=== PATIENT | female | born 1970 | race African-American/Black ===

== ENCOUNTER 2020-01-18 15:28 | Outpatient (CLI) | payer BC, SELFPAY ==
--- NOTE | ~2020-01-18 | MM_ITS ---
EXAMINATION: MM screening michael BI w mag HISTORY: Screening mammogram TECHNIQUE: Craniocaudal and mediolateral oblique 3-D tomosynthesis images were obtained and synthetic 2-D images were generated. CAD analysis was submitted and interpreted. COMPARISON: Comparison to multiple prior studies sequentially, with oldest reviewed study dated 01/2024. BREAST PARENCHYMAL COMPOSITION: There are scattered areas of fibroglandular density. FINDINGS: There is no evidence of suspicious mass, calcification, or architectural distortion to sugg est malignancy in either breast. There has been no suspicious interval change. IMPRESSION: 1. No mammographic evidence of malignancy. 2. Recommend routine screening mammography in one year. BI-RADS Category 1: Negative Reviewed, dictated and finalized at location A.
== END 2020-01-18 15:29 | disposition home or self-care (01) ==
LOC: ANHIMG 15:35
PROVIDERS: PCP Internal Medicine; Visit Provider Obstetrics & Gynecology
DX: Z12.31 Encounter for screening mammogram for malignant neoplasm of breast (principal)
CPT/HCPCS: 77063; 77067

== ENCOUNTER → 2020-05-24 09:35 | Outpatient (CLI) | payer BC, SELFPAY ==
--- NOTE | ~2020-05-24 | XR_ITS ---
EXAMINATION: XR chest 2V DATE: 05/24/2020 10:14 INDICATION: Encounter for screening for respiratory tuberculosis TECHNIQUE: PA and lateral views of the chest are obtained. COMPARISON: 05/01/2015 FINDINGS: The lungs are free of acute opacities. There is no pleural effusion or pneumothorax. The ca rdiomediastinal silhouette is normal. There is mild thoracic spondylosis. IMPRESSION: 1. No acute cardiopulmonary abnormality. Reviewed, dictated and finalized at location A. ER OPERATOR
== END ==
PROVIDERS: PCP Internal Medicine; Visit Provider Physician Assistant
DX: Z11.1 Encounter for screening for respiratory tuberculosis (principal)
CPT/HCPCS: 71046

== ENCOUNTER 2020-12-14 08:05 | Outpatient (CLI) | payer BC, SELFPAY ==
--- NOTE | ~2020-12-14 | CT_ITS ---
EXAMINATION: CT abdomen pelvis wo/w con DATE: 12/14/2020 08:32 INDICATION: Right flank pain TECHNIQUE: Computed tomography (CT) of the abdomen and pelvis was performed without intravenous contr ast. CT of the abdomen and pelvis was then performed with a total of 100 mL Omnipaque 350 intravenous contrast. The dose-length product (DLP) was 2325.40 mGy-cm. Automated exposure control and iterative reconstruction technique were employed. COMPARISON: None FINDINGS: The lung bases are clear. The heart size is normal. The liver, spleen, pancreas, gallbladde r, and adrenal glands are normal. The kidneys are unremarkable. No stones are identified in the kidne ys, ureters, or bladder. There is no hydronephrosis or hydroureter. No pathologically enlarged abdomi nal or pelvic lymph nodes are identified. There is no free intraperitoneal gas or evidence of bowel o bstruction. There is marked enlargement of the uterus by fibroids. There are three large fibroids whi ch measure 8.2 cm, 8 cm, and 5.8 cm. Smaller fibroids are also noted. There is mild lumbar spondylosi s. IMPRESSION: 1. No CT correlate for the patient's symptoms. 2. Enlarged fibroid uterus. Reviewed, dictated and finalized at location A.
== END 2020-12-14 08:06 | disposition home or self-care (01) ==
LOC: ANHIMG 08:09
PROVIDERS: PCP Internal Medicine; Visit Provider Internal Medicine
DX: R10.9 Unspecified abdominal pain (principal); D25.9 Leiomyoma of uterus, unspecified
CPT/HCPCS: 74178; Q9967

== ENCOUNTER 2021-01-03 08:23 | Outpatient (CLI) | payer BC, SELFPAY ==
--- NOTE | ~2021-01-03 | NM_ITS ---
EXAMINATION: NM stress w perf spect multi DATE: 01/03/2021 11:01 INDICATION: Chest pain TECHNIQUE: Rest images were obtained following intravenous administration of 10.2 mCi Tc99m tetrofosm in (Myoview). The patient performed an exercise activity. At peak exercise, 32.3 mCi Tc99m tetrofosmi n (Myoview) was administered intravenously, and stress images were obtained. Data was reconstructed i nto short axis and horizontal and vertical long axis SPECT images. Gated SPECT images were also obtai tomy. COMPARISON: None. FINDINGS: Small region of mild decreased activity at the mid anterior wall on the poststress images which appea rs to result from some breast attenuation artifact on the rotating source images. There is otherwise normal left ventricular perfusion without definite evidence of reversible or fixed perfusion abnormal ity to suggest ischemia or infarction. There is normal left ventricular chamber size, wall motion an d ejection fraction. Left ventricular ejection fraction measures >70%. IMPRESSION: Small region of likely breast attenuation artifact at the midanterior segment. Otherwise normal myoca rdial perfusion at rest and during stress. 2. Left ventricular ejection fraction measuring >70%. Reviewed, dictated and finalized at location A. IMPRESSION: Small region of likely breast attenuation artifact at the midanterior segment. Otherwise normal myocardial perfusion at rest and during stress. 2. Left ventricular ejection fraction measuring >70%.
--- NOTE | 2021-01-03 08:53 | EST_ITS ---
Patient Info Name: Nicole Dent Age: 50 years : 1970 Gender: Female Ht: 70 in Wt: 275 lbs BSA: 2.54 m2 Exam Date: 01/03/2021 9:33 AM Exam Location: [facility] [place] Patient Status: Outpatient Admit Date: 01/03/2021 Staff Ordering Physician: Jhon Mckeon DO Attending Provider: Jhon Mckeon DO Exercise Technologist: Berhane Sanchez RDCS, RT Exercise Physician: Abraham Hernandez DO Exam Type: CA stress test treadmill w NM Study Info A nuclear stress test was performed. Summary 1. 1. Negative Kervin exercise stress test for ischemic ST changes by ECG criteria. 2. 2. Reduced functional capacity, achieving 6 METs of workload. 3. 3. Baseline hypertension. 4. 4. Appropriate HR response to exercise. 5. 5. Appropriate HR recovery at 1 minute post exercise. 6. 6. Nuclear scan to follow and will be reported separately. Please correlate with it. 7. 7. Patient informed of the above results. Protocol: Kervin Stress ECG Details Stage: REST Duration (min): 1 min : 1 sec Speed (mph): 0.0 Grade (%): 0 HR (bpm): 67 SBP (mmHg): 142 DBP (mmHg): 95 METS: --- Stage: REST Duration (min): 5 min : 28 sec Speed (mph): 0.0 Grade (%): 0 HR (bpm): 68 SBP (mmHg): 142 DBP (mmHg): 95 METS: --- Stage: STAGE 1 Duration (min): 1 min : 0 sec Speed (mph): 1.7 Grade (%): 10 HR (bpm): 113 SBP (mmHg): 142 DBP (mmHg): 95 METS: --- Stage: STAGE 1 Duration (min): 2 min : 0 sec Speed (mph): 1.7 Grade (%): 10 HR (bpm): 138 SBP (mmHg): 142 DBP (mmHg): 95 METS: --- Stage: STAGE 1 Duration (min): 3 min : 0 sec Speed (mph): 1.7 Grade (%): 10 HR (bpm): 150 SBP (mmHg): 185 DBP (mmHg): 114 METS: --- Stage: STAGE 2 Duration (min): 1 min : 0 sec Speed (mph): 2.5 Grade (%): 12 HR (bpm): 165 SBP (mmHg): 185 DBP (mmHg): 114 METS: --- Stage: STAGE 2 Duration (min): 1 min : 5 sec Speed (mph): 2.5 Grade (%): 12 HR (bpm): 166 SBP (mmHg): 185 DBP (mmHg): 114 METS: --- Stage: RECOVERY Duration (min): 0 min : 54 sec Speed (mph): 0.0 Grade (%): 0 HR (bpm): 144 SBP (mmHg): 180 DBP (mmHg): 106 METS: --- Stage: RECOVERY Duration (min): 1 min : 54 sec Speed (mph): 0.0 Grade (%): 0 HR (bpm): 110 SBP (mmHg): 180 DBP (mmHg): 106 METS: --- Stage: RECOVERY Duration (min): 2 min : 54 sec Speed (mph): 0.0 Grade (%): 0 HR (bpm): 93 SBP (mmHg): 180 DBP (mmHg): 106 METS: --- Stage: RECOVERY Duration (min): 3 min : 54 sec Speed (mph): 0.0 Grade (%): 0 HR (bpm): 91 SBP (mmHg): 189 DBP (mmHg): 98 METS: --- Stage: RECOVERY Duration (min): 4 min : 54 sec Speed (mph): 0.0 Grade (%): 0 HR (bpm): 87 SBP (mmHg): 167 DBP (mmHg): 98 METS: --- Stage: RECOVERY Du
== END 2021-01-03 08:24 | disposition home or self-care (01) ==
PROVIDERS: PCP Internal Medicine; Visit Provider Internal Medicine
DX: R07.9 Chest pain, unspecified (principal); I10 Essential (primary) hypertension
CPT/HCPCS: 78452; 93017; A9502

== ENCOUNTER 2021-03-30 07:59 | Outpatient (CLI) | payer BC, SELFPAY ==
--- NOTE | ~2021-03-30 | MM_ITS ---
EXAMINATION: MM screening michael BI w mag HISTORY: Screening mammogram TECHNIQUE: Craniocaudal and mediolateral oblique 3-D tomosynthesis images were obtained and synthetic 2-D images were generated. CAD analysis was submitted and interpreted. COMPARISON: 01/18/2020, 01/12/2019, 01/02/2018 bilateral digital screening mammogram examinations BREAST PARENCHYMAL COMPOSITION: There are scattered areas of fibroglandular density. FINDINGS: There is no evidence of suspicious mass, calcification, or architectural distortion to sugg est malignancy in either breast. There has been no suspicious interval change. IMPRESSION: 1. No mammographic evidence of malignancy. 2. Recommend routine screening mammography in one year. BI-RADS Category 1: Negative Reviewed, dictated and finalized at location A.
== END 2021-03-30 08:00 | disposition home or self-care (01) ==
LOC: ANHIMG 08:02
PROVIDERS: PCP Internal Medicine; Visit Provider Obstetrics & Gynecology
DX: Z12.31 Encounter for screening mammogram for malignant neoplasm of breast (principal)
CPT/HCPCS: 77063; 77067

== ENCOUNTER 2022-01-11 01:40 | Day surgery (SDC) | payer BC, SELFPAY ==
[2021-12-25 13:24] VITALS: BMI 39.2
--- NOTE | 2022-01-10 12:06 | P.PNAN_ITS ---
Anes - Initial Pre Proc Eval Procedure: Operation Date: 01/11/22 09:00 Proposed Procedures p Screening Colonoscopy - Van Neal MD Date/Time: 01/10/22 12:06 Surgeon: Van Neal MD Pre Op Diagnosis: neoplasm screening Patient Data Age: 51 Gender: F Height: 1.8 m Weight: 127.7 kg Allergies Allergy/AdvReac Type Severity Reaction Status Date / Time tramadol Allergy Mild Unknown Verified 01/11/22 08:15 Home Medications Medication Instructions Recorded Confirmed Type bepotastine besilate 1.5 % eye 1 drop ophthalmic (eye) BID 02/14/20 12/25/21 History drops (Bepreve) albuterol sulfate 90 mcg/actuation 2 inh inhalation Q4-6H PRN 12/13/20 12/25/21 Rx aerosol inhaler (ProAir HFA) shortness of breath or wheezing #54 grams benazepril 20 1 tablet PO DAILY #90 tabs 12/10/21 12/25/21 Rx mg-hydrochlorothiazide 12.5 mg tablet montelukast 10 mg tablet 10 mg PO DAILY #90 tabs 12/10/21 12/25/21 Rx pantoprazole 40 mg tablet,delayed 40 mg PO QAM #90 tabs 12/10/21 12/25/21 Rx release (Protonix) sodium sul 1.479 gram-potas ch See Rx Instructions PO PER PKG DIR 12/21/21 12/25/21 Rx 0.188 gram-magnes sul 0.225 gram #24 tabs tablet (Sutab) cyclosporine 0.09 % eye drops in a 0.09 drp ophthalmic (eye) DAILY 12/25/21 12/25/21 History dropperette (Cequa) Patient hx anesthesia problems: none Family hx anesthesia problems: none Results Review: All pre-operative results and documents have been reviewed as part of the pre- operative evaluation. [facility] Past Medical History Medical History (Updated 01/11/22 @ 08:31 by Wai Calderon DO) Asthma GERD (gastroesophageal reflux disease) Hypertension Family History Family History Father , Renal issues Diabetes mellitus Family history of diabetes mellitus in first degree relative Grandparent Family history of malignant neoplasm Mother Hypertension Asthma Sibling Family history of heart disease in male family member before age 55 Social History Social History Smoking status: Never smoker Second hand tobacco smoke exposure: No Alcohol intake: current Alcohol use details: occasionally Substance use: never Substance use type: does not use Living arrangements: with family Spiritual care concerns: No Anes - Eval Final PreProcedure Day of Procedure 01/10/22 12:06 Patient weight: obese Heart: regular rate and rhythm Lungs: clear to auscultation Airway: Mallampati scale class II Neurological: alert and oriented Last oral intake: >/= 8 hours ASA classification: III Emergent: no Anesthetic plan: proceed Anesthesia type and monitoring: general GIVS and standard monitoring Results Review: All pre-operative results and documents have been reviewed as part of the pre-operative evaluation. Informed Consent: The patient's anesthetic plan and its attendant risks and benefits were discussed with the patient/family/POA. Questions were solicited and answers provided to the satisfaction of the patient/family/POA.
[2022-01-11 08:15] VITALS: BP 146/84; PULSE 65; RESP 16; TEMP 36.6; O2SAT 99
--- NOTE | 2022-01-11 08:26 | WPDGICN ---
Assessment and Plan Assessment and plan (1) Family history of colonic polyps: Code(s): Z83.71 - Family history of colonic polyps Status: Acute Assessment and Plan: Patient's mother grandmother have had colon polyps. Plan is for surveillance colonoscopy now. Consider follow-up colonoscopy is at 5-7 year intervals in the future. Further recommendations may be given after endoscopy. GI Consult Note Consult date/time: 01/11/22 08:26 Reason for consult: Neoplasia screening. HPI: Nicole Nick is a 51 year old female Referred for screening colonoscopy. Patient reports her mother and grandmother both have had colon polyps. Patient states that her current weight appetite bowel movements are normal she denies abdominal pain. She has had no bleeding. She presents today for neoplasia screening. Review of Systems Review of Systems: Review of systems noncontributory. PENDING SALE TO [facility] Past Medical History Medical History (Updated 01/11/22 @ 08:27 by Van Neal MD) Asthma GERD (gastroesophageal reflux disease) Family History Family History Father , Renal issues Diabetes mellitus Family history of diabetes mellitus in first degree relative Grandparent Family history of malignant neoplasm Mother Hypertension Asthma Sibling Family history of heart disease in male family member before age 55 Social History Social History Smoking status: Never smoker Second hand tobacco smoke exposure: No Alcohol intake: current Alcohol use details: occasionally Substance use: never Substance use type: does not use Living arrangements: with family Spiritual care concerns: No Meds Home Medications and Allergies Home Medications Medication Instructions Recorded Confirmed Type bepotastine besilate 1.5 % eye 1 drop ophthalmic (eye) BID 02/14/20 01/11/22 History drops (Bepreve) albuterol sulfate 90 mcg/actuation 2 inh inhalation Q4-6H PRN 12/13/20 01/11/22 Rx aerosol inhaler (ProAir HFA) shortness of breath or wheezing #54 grams benazepril 20 1 tablet PO DAILY #90 tabs 12/10/21 01/11/22 Rx mg-hydrochlorothiazide 12.5 mg tablet montelukast 10 mg tablet 10 mg PO DAILY #90 tabs 12/10/21 01/11/22 Rx pantoprazole 40 mg tablet,delayed 40 mg PO QAM #90 tabs 12/10/21 01/11/22 Rx release (Protonix) sodium sul 1.479 gram-potas ch See Rx Instructions PO PER PKG DIR 12/21/21 01/11/22 Rx 0.188 gram-magnes sul 0.225 gram #24 tabs tablet (Sutab) cyclosporine 0.09 % eye drops in a 0.09 drp ophthalmic (eye) DAILY 12/25/21 01/11/22 History dropperette (Cequa) Allergies Allergy/AdvReac Type Severity Reaction Status Date / Time tramadol Allergy Mild Unknown Verified 01/11/22 08:15 Vital Signs Vital Signs - 24 hr 01/11/22 08:15 Temperature 97.9 F Pulse Rate 65 Respiratory Rate 16 Blood Pressure 146/84 H Pulse Oximetry 99 Oxygen Delivery Room Air Exam Narrative: Physical exam reveals patient to be alert. Vital signs stable. HEENT exam is unremarkable. Patient is anicteric. Lungs are clear to auscultation and percussion. Heart is without murmur or extra sounds. Abdominal exam bowel sounds present soft nontender with no organomegaly. Digital external rectal exam is normal.
[2022-01-11] MEDS: LACTATED RINGERS 1,000 ML 150 ML IV CONT (08:29)
[2022-01-11 09:19] VITALS: BP 115/83; PULSE 83; RESP 19; O2SAT 100
[2022-01-11 09:29] VITALS: BP 141/93; PULSE 67; RESP 23; O2SAT 100
[2022-01-11 09:39] VITALS: BP 140/92; PULSE 66; RESP 25; O2SAT 100
== END 2022-01-11 09:51 | disposition home or self-care (01) ==
PROVIDERS: PCP Internal Medicine; Visit Provider Internal Medicine Gastroenterology
PROC: 0DJD8ZZ Inspection of Lower Intestinal Tract, Via Natural or Artificial Opening Endoscopic (ICD-10-PCS; CPT 45378; principal; 2022-01-11 09:00)
DX: Z12.11 Encounter for screening for malignant neoplasm of colon (principal); K63.5 Polyp of colon; Z83.71 Family history of colonic polyps; K64.8 Other hemorrhoids; K21.9 Gastro-esophageal reflux disease without esophagitis; J45.909 Unspecified asthma, uncomplicated; Z79.51 Long term (current) use of inhaled steroids; I10 Essential (primary) hypertension; E66.9 Obesity, unspecified; Z68.39 Body mass index [BMI] 39.0-39.9, adult
CPT/HCPCS: 45385; 88305; J2704; J7120

== ENCOUNTER 2022-06-06 15:59 | Outpatient (CLI) | payer OTHER, SELFPAY ==
--- NOTE | ~2022-06-06 | MM_ITS ---
EXAMINATION: MM screening michael BI w mag HISTORY: Screening TECHNIQUE: Craniocaudal and mediolateral oblique 3-D tomosynthesis images were obtained and synthetic 2-D images were generated. CAD analysis was submitted and interpreted. COMPARISON: Comparison to multiple prior studies sequentially, with oldest reviewed study dated 11/29. BREAST PARENCHYMAL COMPOSITION: There are scattered areas of fibroglandular density. FINDINGS: There is no evidence of suspicious mass, calcification, or architectural distortion to sugg est malignancy in either breast. There has been no suspicious interval change. IMPRESSION: 1. No mammographic evidence of malignancy. 2. Recommend routine screening mammography in one year. BI-RADS Category 1: Negative Reviewed, dictated and finalized at location A. L PATTERNMAKER
== END 2022-06-06 16:00 | disposition home or self-care (01) ==
PROVIDERS: PCP Internal Medicine; Visit Provider Obstetrics & Gynecology
DX: Z12.31 Encounter for screening mammogram for malignant neoplasm of breast (principal)
CPT/HCPCS: 77063; 77067

== ENCOUNTER 2023-09-16 13:58 | Outpatient (CLI) | payer OTHER, SELFPAY ==
--- NOTE | ~2023-09-16 | MM_ITS ---
EXAMINATION: MM screening michael BI w mag HISTORY: Screening TECHNIQUE: Craniocaudal and mediolateral oblique 3-D tomosynthesis images were obtained and synthetic 2-D images were generated. CAD analysis was submitted and interpreted. COMPARISON: Comparison to multiple prior studies sequentially, with oldest reviewed study dated 12/2016. BREAST PARENCHYMAL COMPOSITION: There are scattered areas of fibroglandular density. FINDINGS: There is no evidence of suspicious mass, calcification, or architectural distortion to sugg est malignancy in either breast. There has been no suspicious interval change. IMPRESSION: 1. No mammographic evidence of malignancy. 2. Recommend routine screening mammography in one year. BI-RADS Category 1: Negative Reviewed, dictated and finalized at location A. [employer]
== END 2023-09-16 13:59 | disposition home or self-care (01) ==
PROVIDERS: PCP Internal Medicine; Visit Provider Obstetrics & Gynecology
DX: Z12.31 Encounter for screening mammogram for malignant neoplasm of breast (principal)
CPT/HCPCS: 77063; 77067

== ENCOUNTER 2024-11-23 08:07 | Outpatient (CLI) | payer BC, SELFPAY ==
--- NOTE | ~2024-11-23 | MM_ITS ---
EXAMINATION: MM screening michael BI w mag HISTORY: Screening TECHNIQUE: Craniocaudal and mediolateral oblique 3-D tomosynthesis images were obtained and synthetic 2-D images were generated. CAD analysis was submitted and interpreted. COMPARISON: Comparison to multiple prior studies sequentially, with oldest reviewed study dated Luis rison to multiple prior studies sequentially, with oldest reviewed study dated 01/02/2018. . BREAST PARENCHYMAL COMPOSITION: There are scattered areas of fibroglandular density. FINDINGS: There is no evidence of suspicious mass, calcification, or architectural distortion to sugg est malignancy in either breast. There has been no suspicious interval change. IMPRESSION: 1. No mammographic evidence of malignancy. 2. Recommend routine screening mammography in one year. BI-RADS Category 1: Negative Reviewed, dictated and finalized at location A.
--- OUTSIDE RECORDS SUMMARY | 2024-11-23 08:13 | XMS_ITS | Referral Summary ---
Author Organization [facility] [address] Address [address] [place] [address] Care Team Providers Care Silver Wrapper Name Role Phone Jhon Mckeon MD Primary Care Provider [phone] Encounters Date Type Department Care Team Description 11/01/2024 Telephone [facility]) - [facility] ENT [address] [facility] 11[address] [place] [address] [place] [id number] Funmi Galeano, from Last 3 Months Allergies Active Allergy Reactions Criticality Noted Date Comments Grass Pollen Eye irritation,Headache,Hives,Shortness of breath High 2001 House Dust Eye irritation,Hives ,Shortness of breath High 2001 Mold Eye irritation,Itchi ng,Shortness of breath High 2001 Medications benazepriL-hydro chlorothiazide (LOTENSIN HCT) 20-12.5 mg per tablet Take 1 tablet by mouth daily 2 Active montelukast (SINGULAIR) 10 mg tablet Take 1 tablet (10 mg total) by mouth daily [address] (PROTONIX) 40 mg EC tablet Take 1 tablet (40 mg total) by mouth every morning 2 Active azelastine-fluti casone 137-50 mcg/spray spray,non-aeroso lIndications:All ergic rhinitis due to pollen, unspecified seasonality Administer 1 spray into each nostril 2 (two) times a day 69 g 3 3 Active clotrimazole (MYCELEX) 10 mg zack DISSOLVE 1 LOZENGE IN MOUTH 5 TIME DAILY 3 Active Active Problems Problem Noted Date Diagnosed Date Uncomplicated asthma 02/25/2023 Chronic eczematous otitis externa of both ears 0 01/01/2022 Allergic rhinitis due to pollen 01/01/2022 Sensorineural hearing loss, asymmetrical 022 Tinnitus of both ears 01/01/2022 Social History Tobacco Use Types Packs/Day Years Used Date Smoking Tobacco: Never Smokeless Tobacco: Never Tobacco Cessation:Counseling Given: Not Answered Personal Safety Answer Date Recorded Getting School Help Needed Not on file 07/10 Comments Unknown Sex and Gender Information Value Date Recorded Sex Assigned at Not on file Legal Sex 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 Gender Identity Female 03/26/2023 11:00 AM CDT Sexual Orientation Straight 03/26/2023 11 :00 AM CDT Last Filed Vital Signs Vital Sign Reading Time Taken Comments Blood Pressure - - Pulse - - Temperature 36.8 C (98.3 F) 05/05/2023 1:41 PM CDT Respiratory Rate 17 12/31/2021 10:28 AM CDT Oxygen Saturation - - Inhaled Oxygen Concentration - - Weight 130.2 kg (287 lb) 06/02/2023 8:41 AM INDEPENDENT CROP CONSULTANT Height 180.3 cm (5' 11 ) 06/02/2023 8:41 AM INDEPENDENT CROP CONSULTANT Body Mass Index 40.03 06/02/2023 8:41 AM INDEPENDENT CROP CONSULTANT Plan of Treatment Not on file Insurance [facility] [employer] H[employer] Care Teams Silver Wrapper Relationship Specialty Start Date End Date Jhon Mckeon MD [address] [facility] [address] [place], [place] [id number] PCP - General Internal Medicine 12/21/21
--- OUTSIDE RECORDS SUMMARY | 2024-11-23 08:13 | XMS_ITS | Clinical Summary ---
Author Organization [facility] Address [address] [place] [id number] Care Team Providers Care Circular Saw Edge Fuser Name Role Phone Jhon Mckeon DO Primary Care Provider [phone] Allergies Active Allergy Reactions Criticality Noted Date Comments Grass Pollen Other (See Comments),Headache,Hives,Shortness of Breath/Wheezing High 2001 House Dust Other (See Comments) ,Hives,Shortness of Breath/Wheezing High 2001 Mold Other (See Comments) ,Itching,Shortness of Breath/Wheezing High 2001 Medications azelastine-flut icasone 137-50 mcg/spray [place], Non-Aerosol Administer 1 [place] in each nostril 2 times daily. 3 Active benazepril-hydr oCHLOROthiazide (LOTENSIN HCT) 20-12.5 mg Tablet Take 1 Tablet by mouth daily. Active Symbicort 160-4.5 mcg/actuation HFA Aerosol Inhaler Take 2 Puffs by inhalation 2 times daily. 3 Active lisinopriL (PRINIVIL) 10 mg tablet Take 10 mg by mouth daily. Active predniSONE (DELTASONE) 20 mg tabletIndicatio ns:Angioedema, initial encounter,Aller gic reaction, initial encounter Take 1 Tablet (20 mg) by mouth 2 times daily with meals. 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 [employer] Gender Identity Not on file Sexual Orientation Not on file Last Filed Vital Signs Vital Sign Reading Time Taken Comments Blood Pressure 173/96 09/19/2023 3:53 PM SUPERVISOR [employer]URSING Pulse 64 09/19/2023 3:53 PM SUPERVISOR [employer]URSING Temperature 36.7 C (98 F) 09/19/2023 3:53 PM SUPERVISOR [employer]URSING Respiratory Rate 15 09/19/2023 3:53 PM SUPERVISOR [employer]URSING Oxygen Saturation 98% 09/19/2023 3:53 PM SUPERVISOR [employer]URSING Inhaled Oxygen Concentration - - Weight - - Height - - Body Mass Index - - Plan of Treatment Health Maintenance Due Date Last Done Comments DTAP/TDAP/TD VACCINES (1 - Tdap) 1990 HEPATITIS B VACCINES (1 of 3 - 19+ 3-dose series) 02/18 HPV/Cotest (21-29) 1992 CERVICAL CANCER SCREENING 2001 HPV/Cotest (30-65) 2001 PAP SMEAR 2001 BREAST CANCER SCREENING 2011 COLORECTAL SCREENING 2016 Colorectal Cancer Screening 2016 FIT-DNA Q 3 years 2016 FIT/FOBT Q 1 year 2016 Flex Sig/CT Colonography Q 5 years 2016 ZOSTER VACCINE (1 of 2) 2021 INFLUENZA VACCINE (#1) 2024 Insurance [employer] Care Teams Circular Saw Edge Fuser Relationship Specialty Start Date End Date Jhon Mckeon DO [address] [facility] [address] [place] [address] PCP - General 09/19/23
--- OUTSIDE RECORDS SUMMARY | 2024-11-23 08:13 | XMS_ITS | Clinical Summary ---
Author Organization [facility] Address [address] [place] [address] Phone Care Team Providers Care Medical Laboratory Technician Name Role Phone Jhon Mckeon DO Primary Care Provider [phone] Allergies No known active allergies Active Problems Problem Noted Date Diagnosed Date Adjustment reaction with anxiety 03/11/2016 Social History Tobacco Use Types Packs/Day Years Used Date Smoking Tobacco: Never Smokeless Tobacco: Never Alcohol Use Standard Drinks/Week Comments No 0 (1 standard drink = 0.6 oz pur e alcohol) Sexually Active Control Partners Comments Yes Male Condom Male Comments Unknown Sex and Gender Information Value Date Recorded Sex Assigned at Not on file Legal Sex Female 12:34 AM CDT Gender Identity Not on file Sexual Orientation Not on file Plan of Treatment Health Maintenance Due Date Last Done Comments Hepatitis C Virus (HCV) Screening 1970 TdaP Immunization 1970 Hepatitis B Immunization (1 of 3 - 19+ 3-dose series) 1990 Pap Smear 1992 Cervical Cancer Screening (CCS) 2001 HPV/Cotest 2001 Colonoscopy 2016 Colorectal Cancer Screening 2016 Cologuard 2021 Immunochemical Fecal Occult Blood 2021 Mammogram 2021 Pneumococcal Immunization (5 0+ years) (1 of 1 - PCV) 2021 Zoster Immunization (1 of 2) 2021 Influenza Immunization (#1) 2024 SARS-COV-2 Immunization ( - 2023-25 season) 2024 Respiratory Syncytial Virus (RSV) Immunization (Adult) (1 - 1-dose 75+ series) 2046 Meningococcal Immunization (ACWY) Aged Out No longer eligible based on patient's age to complete this topic Pneumococcal Immunization Combined Aged Out No longer eligible based on patient's age to complete this topic Rotavirus Immunization Aged Out No lo nger eligible based on patient's age to complete this topic Insurance Care Teams Medical Laboratory Technician Relationship Specialty Start Date End Date Jhon Mckeon DO [address] [place] [address] PCP - General Internal Medicine 03/01/16
--- OUTSIDE RECORDS SUMMARY | 2024-11-23 08:13 | XMS_ITS | Clinical Summary ---
Author Organization [facility] [address] Address [address] [place] [address] Care Team Providers Care Coiled Tubing Supervisor Name Role Phone Jhon Mckeon MD Primary Care Provider [phone]- [phone] Allergies Active Allergy Reactions Criticality Noted Date [...] asymmetrical 022 Tinnitus of both ears 01/01/2022 Encounters Date Type Department Care Team Description 11/01/2024 [facility] ([facility] - [facility] ENT [address] [facility] 11[address] [place] [address] [place] [address] Funmi Galeano MS from Last 3 Months Surgical History Surgery Date Site/Laterality Comments DILATION AND CURETTAGE OF UTERUS HYSTERECTOMY TUBAL LIGATION COLONOSCOPY 01/11/22 Medical History Medical History Date Comments Allergic rhinitis GERD (gastroesophageal reflux disease) Asthma Hypertension Nosebleed 3years old14 years old TMJ dysfunction 2005 Anemia 1999 Family History Medical History Relation Name Comments Diabetes Father RWilson Heart disease Father RWilson Hypertension Father RWilson Thyroid disease Father RWilson Cancer Maternal Grandfather FJOnes Hypertension Maternal Grandmother HMJones Stroke Maternal Grandmother HMJones Allergies Mother PJKing Hypertension Mother PJKing Rheum arthritis Paternal Grandmother WWilson Allergies Sister RBW Asthma Sister RBW Seizures Sister RBW Relation Name Status Comments Father RWilson Maternal Grandfather FJOnes Maternal Grandmother HMJones Mother PJKing Paternal Grandmother WWilson Sister RBW Social History Tobacco Use Types Packs/Day Years Used Date Smoking Tobacco: Never Smokeless Tobacco: Never Tobacco Cessation:Counseling Given: Not Answered Personal Safety Answer Date Recorded Getting School Help Needed Not on file 07/10 Comments Unknown Sex and Gender Information Value Date Recorded Sex Assigned at Not on file Legal Sex Female 1:18 PM STONE [employer]TER Gender Identity Female 03/26/2023 11:00 AM CDT Sexual Orientation Straight 03/26/2023 11 :00 AM CDT Obstetrics History Last Filed Vital Signs Vital Sign Reading Time Taken Comments Blood Pressure - - Pulse - - Temperature 36.8 C (98.3 F) 05/05/2023 1:41 PM CDT Respiratory Rate 17 12/31/2021 10:28 AM CDT Oxygen Saturation - - Inhaled Oxygen Concentration - - Weight 130.2 kg (287 lb) 06/02/2023 8:41 AM STONE SETTER Height 180.3 cm (5' 11 ) 06/02/2023 8:41 AM STONE SETTER Body Mass Index 40.03 06/02/2023 8:41 AM STONE SETTER Plan of Treatment Health Maintenance Due Date Last Done Comments Breast Cancer Screening-Mammogram 1971 Colon Cancer Screening-Colonoscopy 1971 Depression Screening 1971 Hepatitis C Screening 1971 DTaP/Tdap/Td Vaccine (1 - Tdap) 1982 Hepatitis B Screening 1989 Regular Well Visit/Exam 18-64 1989 Pneumococcal vaccine <65 (1 of 2 - PCV) 1990 Zoster Vaccine (1 of 2) 2021 Covid-19 Vaccine (3 - season) 2024, 01/19/2021 Influenza Vaccine (Season Ended) 2025 Insurance [facility] Care Teams Coiled Tubing Supervisor Relationship Specialty Start Date End Date Jhon Mckeon MD [address] [facility] [address] [place] [id number] PCP - General Internal Medicine 12/21/21
== END 2024-11-23 08:08 | disposition home or self-care (01) ==
PROVIDERS: PCP Nurse Practitioner; Visit Provider Obstetrics & Gynecology
DX: Z12.31 Encounter for screening mammogram for malignant neoplasm of breast (principal)
CPT/HCPCS: 77063; 77067